=== PATIENT | female | born 1965 | race Two or more races ===

== ENCOUNTER 2016-10-06 14:33 | Emergency (ER) | payer MEDICAID ==
[2016-10-06] MEDS ORDERED: LOPERAMIDE HCL 2 MG CAPSULE ONE (15:52)
[2016-10-06] MEDS ORDERED: LACTATED RINGERS 1,000 ML ONE (15:52)
[2016-10-06] MEDS ORDERED: PROCHLORPERAZINE 5 MG/ML 2 ML VIAL ONE (15:52)
--- NOTE | 2016-10-06 16:38 | RAD ---
CHEST - 2 VIEWS COMPARISON: None. HISTORY: Cough and sore throat for the past week. Hemoptysis and diarrhea today. FINDINGS: Views: Frontal and lateral chest Lungs: Normal Heart and vessels: Normal Trachea and bronchi: Normal Mediastinum and anju: Normal Costophrenic sulci: Normal Chest wall and bones: Normal. Upper abdomen: Normal. IMPRESSION: Negative 2 view chest.
[2016-10-06 17:30] LABS: PH,URINE 6.5 (5.0-8.0); URINE BILIRUBIN NEGATIVE (NEGATIVE); URINE BLOOD NEGATIVE (NEGATIVE); URINE GLUCOSE (UA) NEGATIVE (NEGATIVE); URINE LEUKOCYTE ESTERASE NEGATIVE (NEGATIVE); URINE NITRITE NEGATIVE (NEGATIVE); URINE PROTEIN TRACE (NEGATIVE); URINE UROBILINOGEN NORMAL (0-1 mg/dl)
[2016-10-06 17:33] LABS: URINE APPEARANCE CLEAR; URINE COLOR YELLOW
== END 2016-10-06 17:49 | disposition home or self-care (01) ==
LOC: ED 14:33
DX: J09.X2 Influenza due to identified novel influenza A virus with other respiratory manifestations (principal); R19.7 Diarrhea, unspecified; R11.2 Nausea with vomiting, unspecified
CPT/HCPCS: 84703; 81003; 71020; 87804; 99283 ×2; 96374; J0780; A9270; J7120